=== PATIENT | male | born 1995 | race African-American/Black ===

== ENCOUNTER 2016-11-23 19:14 | Emergency (ER) | payer MEDICAID ==
[~2016-11-23] VITALS: Ht 170.2 cm; Wt 67.0 kg
[2016-11-24 01:10] VITALS: BP 108/77
== END 2016-11-24 01:10 | disposition home or self-care (01) ==
LOC: ER 19:14
DX: S93.601A Unspecified sprain of right foot, initial encounter (principal); Z88.6 Allergy status to analgesic agent; X58.XXXA Exposure to other specified factors, initial encounter; Y93.67 Activity, basketball; Y92.89 Other specified places as the place of occurrence of the external cause; Y99.8 Other external cause status
CPT/HCPCS: 73610; 73630; 99284